=== PATIENT | male | born 1945 | race Caucasian/White ===

== ENCOUNTER → 2017-06-13 | Outpatient (CLI) | payer MEDICARE ==
[~2017-06-13] MED LIST: COUMADIN 22.5 MG/TAB PO; LOPRESSOR 225 MG/TAB PO; TYLENOL PM EXTR1 TA1 PO; ZOCOR 40MG40 MG PO
== END ==
LOC: COL.VAS 08:40
DX: I08.1 Rheumatic disorders of both mitral and tricuspid valves (principal); R06.02 Shortness of breath; R05 Cough; R53.81 Other malaise; R53.83 Other fatigue; R79.89 Other specified abnormal findings of blood chemistry

== ENCOUNTER → 2017-12-31 | Outpatient (REF) ==
[~2017-12-31] MED LIST changes: +ASPIRIN 81M81 MG/TA2 PO; +BREO IH; +CARDIZEM CD 18180 MG PO; +K-DUR 10 MEQ T10 MEQ PO; +LASIX 20MG TABL20 MG PO; +PEPCID 20MG TAB20 MG PO; +PLAVIX 75MG TAB75 MG PO; +PROAIR HFA0.09 MG/AC IH; +PROTONIX 40MG T40 MG PO; +VENTOLIN0.09 MG IH; +ZESTRIL 10MG10 MG PO
[2017-12-31 16:57] LABS: THYROID STIMULATING HORMONE 3.72 uIU/mL (0.465-4.680)
== END ==
LOC: ZLAB.WCH 16:05
PROVIDERS: Internal Medicine
DX: Z01.89 Encounter for other specified special examinations (principal)

== ENCOUNTER 2018-01-03 23:50 | Inpatient (IN) | payer MEDICARE, OTHER ==
[~2018-01-03] VITALS: Ht 188 cm; Wt 89.0 kg
[~2018-01-03 23:50] MED LIST changes: -ASPIRIN 81M81 MG/TA2 PO; -PLAVIX 75MG TAB75 MG PO; -PROAIR HFA0.09 MG/AC IH; -PROTONIX 40MG T40 MG PO; -VENTOLIN0.09 MG IH
[2018-01-03 23:51] VITALS: O2SAT 99
[2018-01-03 23:53] VITALS: O2SAT 100
[2018-01-03 23:54] VITALS: O2SAT 100
[2018-01-03 23:57] VITALS: O2SAT 98
[2018-01-03 23:58] VITALS: BP 122/97; PULSE 64; TEMP 98.7; O2SAT 100
[2018-01-04] VITALS (692 sets, daily range): BP systolic 117–168; BP diastolic 57–81; PULSE 43–52; TEMP 97.4–98.3; O2SAT 48–100
[2018-01-04] MEDS ORDERED: PLAVIX 75MG TAB75 MG PO (00:55)
[2018-01-04] MEDS ORDERED: ASPIRIN 81M81 MG/TA2 PO (00:56)
[2018-01-04] MEDS ORDERED: PROAIR HFA0.09 MG/AC IH (00:57)
[2018-01-04] MEDS ORDERED: VENTOLIN0.09 MG IH (00:58)
[2018-01-04 01:19] LABS: BASO % 0.4 % (0.0-2.0); EOS # 0.1 (0.0-0.7); GRAN # 3.8 (1.4-6.5); GRAN % 68.4 % (42.2-75.2); LYMPH % 16.9 % (20.0-51.0); MEAN CELL VOLUME 101 fl (80.0-100.0); MEAN CORPUSCULAR HGB CONC 30 g/dl (33.0-37.0); MEAN PLATELET VOLUME 11.3 fl (7.4-10.4); MONO # 0.7 (0.1-0.6); MONO % 11.8 % (1.7-9.3); PLATELET COUNT 192 K/mm3 (130-400); RED BLOOD COUNT 2.03 M/mm3 (4.20-5.60); REDCELL DISTRIBUTION WIDTH-CV 16.8 % (11.5-14.5)
[2018-01-04 01:22] LABS: MEAN CORPUSCULAR HEMOGLOBIN 31 pg (27.0-31.0)
[2018-01-04 01:23] LABS: HEMATOCRIT 20.5 % (42.0-52.0); HEMOGLOBIN 6.2 g/dl (13.5-18.0)
[2018-01-04 01:30] LABS: ALBUMIN 3.1 gm/dL (3.5-5.0); BILIRUBIN,TOTAL 0.4 mg/dL (0.0-1.0); CALCIUM 8.1 mg/dL (8.4-10.2); CREATININE, serum 1.01 mg/dL (0.66-1.25); MAGNESIUM 1.9 mg/dL (1.6-2.3); POTASSIUM 4.1 mmol/L (3.4-5.0); TOTAL PROTEIN 5.7 gm/dL (6.4-8.2)
[2018-01-04 01:43] LABS: TROPONIN-I 0.022 ng/mL (0.000-0.034)
[2018-01-04 06:16] LABS: BASO % 0.2 % (0.0-2.0); EOS # 0.1 (0.0-0.7); GRAN % 68.3 % (42.2-75.2); LYMPH % 16.8 % (20.0-51.0); MEAN CELL VOLUME 101 fl (80.0-100.0); MEAN CORPUSCULAR HGB CONC 31 g/dl (33.0-37.0); MEAN PLATELET VOLUME 10.7 fl (7.4-10.4); MONO # 0.7 (0.1-0.6); MONO % 12.4 % (1.7-9.3); PLATELET COUNT 182 K/mm3 (130-400); RED BLOOD COUNT 2.18 M/mm3 (4.20-5.60); REDCELL DISTRIBUTION WIDTH-CV 16.8 % (11.5-14.5)
[2018-01-04 06:21] LABS: HEMATOCRIT 21.9 % (42.0-52.0); HEMOGLOBIN 6.7 g/dl (13.5-18.0); MEAN CORPUSCULAR HEMOGLOBIN 31 pg (27.0-31.0)
[2018-01-04 06:29] LABS: BILIRUBIN,TOTAL 0.9 mg/dL (0.0-1.0); CREATININE, serum 1.03 mg/dL (0.66-1.25); POTASSIUM 4.4 mmol/L (3.4-5.0); TOTAL PROTEIN 5.7 gm/dL (6.4-8.2)
[2018-01-04 13:41] LABS: HEMATOCRIT 28.1 % (42.0-52.0); HEMOGLOBIN 8.9 g/dl (13.5-18.0)
[2018-01-04 20:37] LABS: HEMATOCRIT 27.1 % (42.0-52.0); HEMOGLOBIN 8.5 g/dl (13.5-18.0)
[2018-01-05] VITALS (171 sets, daily range): BP systolic 119–161; BP diastolic 60–75; PULSE 46–60; TEMP 97.3–98.4; O2SAT 82–100
[2018-01-05 05:24] LABS: BASO % 0.2 % (0.0-2.0); EOS # 0.2 (0.0-0.7); GRAN # 3.4 (1.4-6.5); GRAN % 67.8 % (42.2-75.2); LYMPH # 0.9 (1.2-3.4); LYMPH % 17.6 % (20.0-51.0); MEAN CELL VOLUME 98 fl (80.0-100.0); MEAN CORPUSCULAR HGB CONC 31 g/dl (33.0-37.0); MONO # 0.6 (0.1-0.6); MONO % 11.2 % (1.7-9.3); PLATELET COUNT 175 K/mm3 (130-400); RED BLOOD COUNT 2.54 M/mm3 (4.20-5.60); REDCELL DISTRIBUTION WIDTH-CV 17.4 % (11.5-14.5)
[2018-01-05 05:25] LABS: HEMATOCRIT 24.8 % (42.0-52.0); HEMOGLOBIN 7.7 g/dl (13.5-18.0); MEAN CORPUSCULAR HEMOGLOBIN 30 pg (27.0-31.0)
[2018-01-05 05:33] LABS: CALCIUM 7.7 mg/dL (8.4-10.2); CREATININE, serum 0.79 mg/dL (0.66-1.25); POTASSIUM 3.8 mmol/L (3.4-5.0)
[2018-01-05 11:26] LABS: HEMATOCRIT 26.8 % (42.0-52.0); HEMOGLOBIN 8.4 g/dl (13.5-18.0)
[2018-01-06 04:38] VITALS: BP 150/70; PULSE 51; TEMP 98
[2018-01-06 06:49] LABS: BASO % 0.2 % (0.0-2.0); EOS # 0.2 (0.0-0.7); EOS % 3.2 % (0-4.0); GRAN # 3.3 (1.4-6.5); LYMPH # 0.9 (1.2-3.4); LYMPH % 17.9 % (20.0-51.0); MEAN CELL VOLUME 99 fl (80.0-100.0); MEAN CORPUSCULAR HGB CONC 31 g/dl (33.0-37.0); MEAN PLATELET VOLUME 11.5 fl (7.4-10.4); MONO # 0.7 (0.1-0.6); MONO % 13.5 % (1.7-9.3); PLATELET COUNT 185 K/mm3 (130-400); RED BLOOD COUNT 2.63 M/mm3 (4.20-5.60); REDCELL DISTRIBUTION WIDTH-CV 17.4 % (11.5-14.5)
[2018-01-06 07:01] LABS: HEMATOCRIT 25.9 % (42.0-52.0); HEMOGLOBIN 8.1 g/dl (13.5-18.0); MEAN CORPUSCULAR HEMOGLOBIN 31 pg (27.0-31.0)
[2018-01-06 07:06] LABS: CALCIUM 8.7 mg/dL (8.4-10.2); CREATININE, serum 0.92 mg/dL (0.66-1.25); POTASSIUM 3.7 mmol/L (3.4-5.0)
[2018-01-06 07:54] VITALS: BP 137/57; PULSE 50; TEMP 98
[2018-01-06 11:52] VITALS: BP 92/58; PULSE 53; TEMP 97.8
[2018-01-06 12:52] LABS: HEMATOCRIT 27.4 % (42.0-52.0); HEMOGLOBIN 8.6 g/dl (13.5-18.0)
[2018-01-06] MEDS ORDERED: PROTONIX 40MG T40 MG PO (13:03)
[2018-01-06 13:45] VITALS: BP 142/74
[2018-01-06] MEDS ORDERED: ASPIRIN 81M81 MG/TA2 PO (14:45)
== END 2018-01-06 14:00 | disposition home or self-care (01) | DRG 378 ==
LOC: ICU 23:50 → SURG 01-05 12:50
PROVIDERS: Hospitalist; Internal Medicine Gastroenterology; Nurse Practitioner Family; Physician Assistant
PROC: 0DJ08ZZ Inspection of Upper Intestinal Tract, Via Natural or Artificial Opening Endoscopic (ICD-10-PCS; principal; 2018-01-04 14:45)
PROC: 0DJD8ZZ Inspection of Lower Intestinal Tract, Via Natural or Artificial Opening Endoscopic (ICD-10-PCS; 2018-01-04 14:45)
DX: K92.1 Melena (principal); D62 Acute posthemorrhagic anemia; K22.2 Esophageal obstruction; K44.9 Diaphragmatic hernia without obstruction or gangrene; K21.0 Gastro-esophageal reflux disease with esophagitis; K57.30 Diverticulosis of large intestine without perforation or abscess without bleeding; I48.2 Chronic atrial fibrillation; I10 Essential (primary) hypertension; J44.9 Chronic obstructive pulmonary disease, unspecified; Z95.2 Presence of prosthetic heart valve; Z79.01 Long term (current) use of anticoagulants; Z87.891 Personal history of nicotine dependence
CPT/HCPCS: 99223-AI; 99233-AI; 99239; C9113; J7030; P9016

== ENCOUNTER → 2018-01-04 | Outpatient (REF) ==
[~2018-01-04] MED LIST changes: +ASPIRIN 81M81 MG/TA2 PO; +PLAVIX 75MG TAB75 MG PO; +PROAIR HFA0.09 MG/AC IH; +PROTONIX 40MG T40 MG PO; +VENTOLIN0.09 MG IH
== END ==
LOC: COL.CARD 11:02
DX: Z01.818 Encounter for other preprocedural examination (principal)
CPT/HCPCS: J2704; J3010

== ENCOUNTER → 2018-01-04 | Outpatient (REF) | LOC: ZLAB.WCH 08:34 | DX: Z01.89 Encounter for other specified special examinations (principal) ==

== ENCOUNTER → 2018-01-14 | Outpatient (REF) ==
[2018-01-14 16:14] LABS: IRON,SERUM 23 ug/dL (35-150)
[2018-01-14 16:23] LABS: TOTAL IRON BINDING CAPACITY 342 ug/dL (261-462)
[2018-01-14 16:51] LABS: FERRITIN 16 ng/mL (18-464)
== END ==
LOC: ZLAB.WCH 15:35
PROVIDERS: Internal Medicine
DX: Z01.89 Encounter for other specified special examinations (principal)

== ENCOUNTER → 2018-02-04 | Outpatient (REF) ==
[2018-02-04 18:44] LABS: IRON,SERUM 33 ug/dL (35-150)
[2018-02-04 18:53] LABS: TOTAL IRON BINDING CAPACITY 346 ug/dL (261-462)
[2018-02-04 19:21] LABS: FERRITIN 15 ng/mL (18-464)
== END ==
LOC: ZLAB.WCH 18:20
PROVIDERS: Internal Medicine
DX: Z01.89 Encounter for other specified special examinations (principal)

== ENCOUNTER → 2018-03-04 | Outpatient (REF) ==
[2018-03-04 16:33] LABS: IRON,SERUM 28 ug/dL (35-150)
[2018-03-04 16:42] LABS: TOTAL IRON BINDING CAPACITY 353 ug/dL (261-462)
[2018-03-04 17:09] LABS: FERRITIN 16 ng/mL (18-464)
== END ==
LOC: ZLAB.WCH 16:01
PROVIDERS: Internal Medicine
DX: Z01.89 Encounter for other specified special examinations (principal)

== ENCOUNTER → 2018-04-10 | Outpatient (REF) ==
[2018-04-10 16:19] LABS: IRON,SERUM 57 ug/dL (35-150)
[2018-04-10 16:28] LABS: TOTAL IRON BINDING CAPACITY 311 ug/dL (261-462)
[2018-04-10 16:55] LABS: FERRITIN 72 ng/mL (18-464)
== END ==
LOC: ZLAB.WCH 16:11
PROVIDERS: Internal Medicine
DX: Z01.89 Encounter for other specified special examinations (principal)

== ENCOUNTER 2019-05-28 10:20 | Day surgery (SDC) | payer MEDICARE, OTHER ==
[~2019-05-28] VITALS: Ht 188.1 cm; Wt 83.0 kg
[2019-05-28] VITALS (10 sets, daily range): BP systolic 139–166; BP diastolic 68–98; PULSE 53–61; TEMP 97
[2019-05-28 11:10] LABS: HEMOGLOBIN 12.4 g/dl (13.5-18.0); MEAN CELL VOLUME 98 fl (80.0-100.0); MEAN CORPUSCULAR HEMOGLOBIN 31 pg (27.0-31.0); MEAN CORPUSCULAR HGB CONC 32 g/dl (33.0-37.0); MEAN PLATELET VOLUME 11.5 fl (7.4-10.4); PLATELET COUNT 167 K/mm3 (130-400); RED BLOOD COUNT 3.99 M/mm3 (4.20-5.60); REDCELL DISTRIBUTION WIDTH-CV 12.9 % (11.5-14.5)
[2019-05-28] MEDS ORDERED: BREO ELLIPTA 21 EACH IH (11:11)
[2019-05-28] MEDS ORDERED: PROTONIX 40MG T40 MG PO (11:12)
[2019-05-28] MEDS ORDERED: LIPITOR 80MG80 MG PO (11:13)
[2019-05-28] MEDS ORDERED: ASPIRIN E.C. 8181 MG PO (11:14)
[2019-05-28 11:19] LABS: CALCIUM 9.8 mg/dL (8.4-10.2); CREATININE, serum 1.11 (0.66-1.25); POTASSIUM 4.6 mmol/L (3.4-5.0)
[2019-05-28] MEDS ORDERED: CARTIA XT180 MG PO (11:57)
[2019-05-28] MEDS ORDERED: LEXAPRO 5MG5 MG OP (12:00)
[2019-05-28] MEDS ORDERED: PRINIVIL2.5 MG PO (12:01)
--- NOTE | 2019-05-28 12:20 | NUR ---
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
--- NOTE | 2019-05-28 12:34 | NUR ---
SEE MERGE FOR MEDICATION TIMES AND INTRA AND POST SEDATION ASSESSMENTS.
--- NOTE | 2019-05-28 15:31 | NUR ---
BEDSIDE HAND OFF REPORT GIVEN TO SABINO DIAZ. DRESSING C/D/I. HEMOSTASIS NOTED. PT ALERT AND ORIENTED. AT BEDSIDE
--- NOTE | 2019-05-28 16:17 | NUR ---
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 He is awake and A/Ox4. States he is having 6/10 pain to his left upper chest from incision site, pt was given PRN tylenol for this. Dressing to left upper chest is CDI, gauze and tape are free of complications. Ice pack applied. Saline lock to left AC is free of complications. Pt was oriented to room and to staff, expressed understanding. at bedside. Pt to remain on bedrest for 2 hours.
--- NOTE | 2019-05-28 17:43 | NUR ---
Pt doing well post op. He continues to state his left upper chest continues to be slighly sore, ice pack applied. Pt up to restroom without difficulty, steady gait. at bedside. Denies any other needs.
--- NOTE | 2019-05-28 20:55 | NUR ---
Patient report received from Jeanna RN at bedside during shift change. Upon assessment patient reports some aching pain at 5/10 to the incision site. PRN Tylenol given. Dressing CDI to site. Vitals stable. No other needs observed/reported.
[2019-05-29 03:33] VITALS: BP 124/81; PULSE 70
[2019-05-29 06:46] LABS: BASO % 0.2 % (0.0-2.0); EOS # 0.2 (0.0-0.7); EOS % 3.1 % (0-4.0); GRAN # 5.1 (1.4-6.5); GRAN % 77.9 % (42.2-75.2); HEMOGLOBIN 11.2 g/dl (13.5-18.0); LYMPH # 0.6 (1.2-3.4); LYMPH % 8.5 % (20.0-51.0); MEAN CELL VOLUME 97 fl (80.0-100.0); MEAN CORPUSCULAR HEMOGLOBIN 31 pg (27.0-31.0); MEAN CORPUSCULAR HGB CONC 32 g/dl (33.0-37.0); MEAN PLATELET VOLUME 11.8 fl (7.4-10.4); MONO # 0.7 (0.1-0.6); PLATELET COUNT 154 K/mm3 (130-400); RED BLOOD COUNT 3.62 M/mm3 (4.20-5.60); REDCELL DISTRIBUTION WIDTH-CV 12.8 % (11.5-14.5)
[2019-05-29 07:00] LABS: ALBUMIN 3.8 gm/dL (3.5-5.0); BILIRUBIN,TOTAL 0.7 mg/dL (0.0-1.0); CREATININE, serum 1.13 (0.66-1.25); POTASSIUM 4.6 mmol/L (3.4-5.0); TOTAL PROTEIN 6.6 gm/dL (6.4-8.2)
--- NOTE | 2019-05-29 07:14 | NUR ---
Patient report given to SABINO Poole. Patient awake, denies significant pain, ready for breakfast. No other needs reported/observed.
[2019-05-29 08:25] VITALS: BP 126/65; PULSE 60; TEMP 97.3
--- NOTE | 2019-05-29 08:45 | NUR ---
Follow-up visit; Patient states he is doing well and thanked Watch Inspector for checking up on him and offering God's blessings.
--- NOTE | 2019-05-29 09:00 | NUR ---
Assessment complete. Pt sitting up in chair, A&O x 4. Breath sounds CTAB. BS active x 4. Pt reports pain to left chest incision site 5 out of 10. Saline lock IV to left AC without s/s of complications. Sling in place to left upper ext. POC reviewed with pt. No further needs reported. Call light in reach.
[2019-05-29] MEDS ORDERED: CLEOCIN HCL300 MG PO (11:17)
[2019-05-29] MEDS ORDERED: COREG 3.123.125 MG/T PO (11:18)
--- NOTE | 2019-05-29 12:00 | NUR ---
Discharge instructions reviewed with pt regarding wound care, s/s of infection, medications and follow-up appointment. Pt verbalizes understanding, discharged home, ambulates out of facility accompanied by RN and pt's family.
--- NOTE | 2019-05-29 13:52 | NUR ---
Front Desk Officer met with patient to discuss discharge plan. Patient lives in [place] with his , Soraya (ph#[phone]). Patient sees Dr. Foster for primary care and obtains medications from [facility] with no issues. Patient does not use any DME and is independent with [facility]. Patient states he has Advance Directives completed. Patient plans to return home upon discharge.
== END 2019-05-29 12:00 | disposition home or self-care (01) ==
LOC: COL.CAR 10:20 → MEDICAL 15:41 → COL.CAR 05-29 12:00
PROVIDERS: Internal Medicine Cardiovascular Disease
DX: I49.5 Sick sinus syndrome (principal); I48.0 Paroxysmal atrial fibrillation
CPT/HCPCS: OP; J2250; J3010; J3370; J7030; J7050; Q9967

== ENCOUNTER → 2020-01-06 | Outpatient (CLI) | payer MEDICARE, OTHER ==
[~2020-01-06] VITALS: Ht 188.1 cm; Wt 85.3 kg
[~2020-01-06] MED LIST changes: +ASPIRIN E.C. 8181 MG PO; +BREO ELLIPTA 21 EACH IH; +CARTIA XT180 MG PO; +CLEOCIN HCL300 MG PO; +COREG 3.123.125 MG/T PO; +COREG 6.256.25 MG/TA PO; +LEXAPRO 5MG5 MG OP; +LIPITOR 80MG80 MG PO; +PRINIVIL2.5 MG PO; +TRELEGY ELLIPT1 EACH IH
[2020-01-06 09:19] VITALS: BP 111/74; PULSE 80
--- NOTE | 2020-01-06 10:27 | NUR ---
procedure cancelled by dr beasley
== END ==
LOC: COL.RAD 08:58
DX: R91.8 Other nonspecific abnormal finding of lung field (principal)

== ENCOUNTER 2020-02-16 09:02 | Day surgery (SDC) | payer MEDICARE, OTHER ==
[2020-02-16] VITALS (7 sets, daily range): BP systolic 118–129; BP diastolic 76–81; PULSE 70–80; TEMP 98–98.1
[2020-02-16 10:05] LABS: HEMOGLOBIN 10.7 g/dl (13.5-18.0); MEAN CELL VOLUME 98 fl (80.0-100.0); MEAN CORPUSCULAR HEMOGLOBIN 31 pg (27.0-31.0); MEAN CORPUSCULAR HGB CONC 32 g/dl (33.0-37.0); PLATELET COUNT 160 K/mm3 (130-400); RED BLOOD COUNT 3.42 M/mm3 (4.20-5.60); REDCELL DISTRIBUTION WIDTH-CV 12.8 % (11.5-14.5)
[2020-02-16 10:06] LABS: HEMATOCRIT 33.5 % (42.0-52.0)
[2020-02-16 10:14] LABS: CALCIUM 9.2 mg/dL (8.4-10.2); CREATININE, serum 1.57 (0.66-1.25); MAGNESIUM 1.8 mg/dL (1.6-2.3); POTASSIUM 4.7 mmol/L (3.4-5.0)
[2020-02-16 10:23] LABS: INR 1.1 (0.8-3.0)
[2020-02-16] MEDS ORDERED: BETAPACE 80MG80 MG PO (10:42)
[2020-02-16 10:44] LABS: THYROID STIMULATING HORMONE 3.33 uIU/mL (0.465-4.680)
--- NOTE | 2020-02-16 12:15 | NUR ---
INT discontinued intact. Discharge orders given. Transferred to private car by
== END 2020-02-16 12:15 | disposition home or self-care (01) ==
LOC: COL.CAR
PROVIDERS: Internal Medicine Cardiovascular Disease
DX: I48.91 Unspecified atrial fibrillation (principal); Z20.828 Contact with and (suspected) exposure to other viral communicable diseases; I08.1 Rheumatic disorders of both mitral and tricuspid valves; E78.5 Hyperlipidemia, unspecified; I25.10 Atherosclerotic heart disease of native coronary artery without angina pectoris; I10 Essential (primary) hypertension; J43.9 Emphysema, unspecified; D64.9 Anemia, unspecified; F41.9 Anxiety disorder, unspecified; K21.9 Gastro-esophageal reflux disease without esophagitis; Z87.891 Personal history of nicotine dependence; Z95.0 Presence of cardiac pacemaker; Z88.0 Allergy status to penicillin; Z95.5 Presence of coronary angioplasty implant and graft; Z79.82 Long term (current) use of aspirin; Z79.899 Other long term (current) drug therapy
CPT/HCPCS: J2704

== ENCOUNTER 2021-04-27 09:03 | Outpatient (CLI) | payer MEDICARE, OTHER ==
[~2021-04-27] VITALS: Ht 188.1 cm; Wt 90.9 kg
[~2021-04-27 09:03] MED LIST changes: +BETAPACE 80MG80 MG PO
[2021-04-27 09:41] LABS: HEMOGLOBIN 10.5 g/dl (13.5-18.0); MEAN CELL VOLUME 93 fl (80.0-100.0); MEAN CORPUSCULAR HEMOGLOBIN 28 pg (27.0-31.0); MEAN CORPUSCULAR HGB CONC 31 g/dl (33.0-37.0); MEAN PLATELET VOLUME 11.3 fl (7.4-10.4); PLATELET COUNT 206 K/mm3 (130-400); RED BLOOD COUNT 3.71 M/mm3 (4.20-5.60); REDCELL DISTRIBUTION WIDTH-CV 14.8 % (11.5-14.5)
[2021-04-27 09:42] LABS: HEMATOCRIT 34.4 % (42.0-52.0)
[2021-04-27 09:48] LABS: INR 1.1 (0.8-3.0)
[2021-04-27 09:55] LABS: CALCIUM 9.6 mg/dL (8.4-10.2); CREATININE, serum 1.36 mg/dL (0.72-1.25); POTASSIUM 4.3 mmol/L (3.5-4.5)
[2021-04-27] MEDS ORDERED: BETAPACE 120MG120 MG PO (09:58)
[2021-04-27] MEDS ORDERED: LEXAPRO20 MG PO (09:59)
[2021-04-27] MEDS ORDERED: THEO-24 30300 MG/CAP PO (10:00)
[2021-04-27 10:04] VITALS: BP 147/87; PULSE 71; TEMP 97.9
--- NOTE | 2021-04-27 10:50 | NUR ---
Report to Norman Hollins.
--- NOTE | 2021-04-27 11:15 | NUR ---
BS REPORT FROM NAHOMY GALLO. PT RESTING COMFORTABLY AFTER NICOLASA, NO PROBLEMS SWALLOWING SECRETIONS. WATER PROVIDED. AT BS. CALL LIGHT IN REACH. PACED RHYTHM ON MONITOR, REG AND UNLABORED RESPIRATION. WE TALKED ABOUT DISCHARGE PLAN IN ABOUT 1 HOUR.
[2021-04-27 11:19] VITALS: BP 128/81; PULSE 70
[2021-04-27 11:30] VITALS: BP 125/79; PULSE 70
[2021-04-27 11:45] VITALS: PULSE 70
[2021-04-27 12:00] VITALS: BP 155/91; PULSE 70
[2021-04-27 12:15] VITALS: BP 150/91; PULSE 71
--- NOTE | 2021-04-27 12:20 | NUR ---
Pt recovered from NICOLASA with no problem. he has been able to drink water wtih no problem, has been ambulatory with steady gait. I reviewed dc/fu instructions with pt and his , both of whom verbalize understanding. IV is dc'd and pt is escorted to exit via wheelchair.
== END 2021-04-27 12:30 | disposition home or self-care (01) ==
LOC: COL.RAD 09:03
PROVIDERS: Internal Medicine Cardiovascular Disease
DX: I23.6 Thrombosis of atrium, auricular appendage, and ventricle as current complications following acute myocardial infarction (principal); Z20.822 Contact with and (suspected) exposure to COVID-19
CPT/HCPCS: J2704

== ENCOUNTER 2021-06-06 10:56 | Emergency (ER) | payer MEDICARE, OTHER ==
[~2021-06-06] VITALS: Ht 188 cm; Wt 88.6 kg
[~2021-06-06 10:56] MED LIST changes: +BETAPACE 120MG120 MG PO; +LEXAPRO 10MG10 MG PO; +THEO-24 30300 MG/CAP PO
[2021-06-06 11:02] VITALS: TEMP 97.8
[2021-06-06 11:29] LABS: BASO % 0.2 % (0.0-2.0); EOS # 0.1 K/mm3 (0.0-0.7); EOS % 1.7 % (0.0-4.0); GRAN # 6.6 K/mm3 (1.4-6.5); GRAN % 78.4 % (42.2-75.2); HEMATOCRIT 38.6 % (42.0-52.0); LYMPH # 0.7 K/mm3 (1.2-3.4); LYMPH % 7.8 % (20.0-51.0); MEAN CELL VOLUME 90 fl (80.0-100.0); MEAN CORPUSCULAR HEMOGLOBIN 28 pg (27-31); MEAN CORPUSCULAR HGB CONC 31 g/dl (33.0-37.0); MONO # 0.9 K/mm3 (0.1-0.6); MONO % 10.7 % (1.7-9.3); PLATELET COUNT 226 K/mm3 (130-400); RED BLOOD COUNT 4.27 M/mm3 (4.20-5.60); REDCELL DISTRIBUTION WIDTH-CV 14.2 % (11.5-14.5)
[2021-06-06] MEDS ORDERED: OMNICEF 300MG300 MG PO (11:34)
[2021-06-06 11:45] LABS: ALBUMIN 4.1 gm/dL (3.4-4.8); BILIRUBIN,TOTAL 1.3 mg/dL (0.2-1.2); C-REACTIVE PROTEIN 0.42 mg/dL (0.00-0.50); CALCIUM 9.8 mg/dL (8.4-10.2); CREATININE, serum 1.6 mg/dL (0.72-1.25); POTASSIUM 4.3 mmol/L (3.5-4.5); TOTAL PROTEIN 7.7 gm/dL (6.2-8.1)
[2021-06-06 11:52] LABS: COLLECTION METHOD CLEAN CATCH
[2021-06-06 12:06] LABS: MUCOUS Present (NOT PRESENT); PH 6 (5-8); SQUAMOUS EPITHELIAL 0-2 /hpf (0-10); URINE APPEARANCE Hazy (CLEAR/HAZY); URINE BACTERIA Rare (NONE SEEN); URINE BILIRUBIN Negative (NEGATIVE); URINE BLOOD Negative (NEGATIVE); URINE COLOR Yellow (YELLOW); URINE GLUCOSE Negative (NEGATIVE); URINE KETONE Negative (NEGATIVE); URINE LEUKOCYTE ESTERASE Negative (NEGATIVE); URINE NITRATE Negative (NEGATIVE); URINE PROTEIN(semi-quant) Negative (NEGATIVE); URINE RBC 0-2 /hpf (0-2); URINE UROBILINOGEN Negative (NEGATIVE)
[2021-06-06] MEDS ORDERED: PRILOSEC 20MG20 MG PO (13:05)
[2021-06-06 13:57] VITALS: BP 128/87; PULSE 80
== END 2021-06-06 14:03 | disposition home or self-care (01) ==
LOC: COL.ER 10:56
PROVIDERS: Family Medicine
DX: K92.2 Gastrointestinal hemorrhage, unspecified (principal); I48.91 Unspecified atrial fibrillation; Z87.442 Personal history of urinary calculi; Z79.899 Other long term (current) drug therapy
CPT/HCPCS: C9113; J2405; J7030; J7120

== ENCOUNTER 2021-06-22 09:09 | Day surgery (SDC) | payer MEDICARE, OTHER ==
[~2021-06-22] VITALS: Ht 188 cm; Wt 90.4 kg
[2021-06-22] VITALS (9 sets, daily range): BP systolic 113–153; BP diastolic 70–98; PULSE 69–116; TEMP 98
[~2021-06-22 09:09] MED LIST changes: +OMNICEF 300MG300 MG PO; +PRILOSEC 20MG20 MG PO
[2021-06-22] MEDS ORDERED: LIPITOR 80MG80 MG PO (10:09)
[2021-06-22 10:59] LABS: MEAN CELL VOLUME 91 fl (80.0-100.0); MEAN CORPUSCULAR HGB CONC 31 g/dl (33.0-37.0); PLATELET COUNT 211 K/mm3 (130-400); REDCELL DISTRIBUTION WIDTH-CV 14.8 % (11.5-14.5)
[2021-06-22 11:00] LABS: HEMATOCRIT 31.9 % (42.0-52.0); HEMOGLOBIN 9.9 g/dl (13.5-18.0); MEAN CORPUSCULAR HEMOGLOBIN 28 pg (27-31)
[2021-06-22 11:08] LABS: INR 1.1 (0.8-3.0); PROTHROMBIN TIME 12.4 SECONDS (9.7-12.8)
[2021-06-22 11:10] LABS: PARTIAL THROMBOPLASTIN TIME 28.5 SECONDS (26.0-37.0)
[2021-06-22 11:17] LABS: CALCIUM 9.2 mg/dL (8.4-10.2); CREATININE, serum 1.25 mg/dL (0.72-1.25); MAGNESIUM 1.9 mg/dL (1.6-2.6); POTASSIUM 4.5 mmol/L (3.5-4.5)
[2021-06-22 11:38] LABS: THYROID STIMULATING HORMONE 1.762 uIU/mL (0.350-4.940)
[2021-06-22] MEDS ORDERED: THEO-24100 MG PO (14:12)
[2021-06-22] MEDS ORDERED: ZEBETA 5MG5 MG PO (14:14)
[2021-06-22] MEDS ORDERED: PACERONE400 MG PO (14:14)
--- NOTE | 2021-06-22 14:37 | NUR ---
Pt is ready for discarge. He did well during his recovery, drinking water with no problem. repeat EKG was obtained, pt's rate and rhythm have remained regular throughout. Pt reports feels better than when he came in this am. DC/rx and fu instructions were reviewed wt pt. Pt was steady on his feet, and IV was dc'd with cath intact. to exit via wheelchair.
--- NOTE | 2021-06-22 14:45 | NUR ---
DC instrucions reviewed with pt and , both express understanding. Pt states throat feels mildly irritated, but he has been able to swallow liquids with no issue. He has refused food, stating he is not hungry at this time. He is steady on feet in room. INT DC'd with catheter intact. He is assisted out by wheelchair to 's car.
== END 2021-06-22 14:45 | disposition home or self-care (01) ==
LOC: COL.CAR 09:09
PROVIDERS: Internal Medicine Cardiovascular Disease
DX: I48.0 Paroxysmal atrial fibrillation (principal); I10 Essential (primary) hypertension; E78.5 Hyperlipidemia, unspecified; J44.9 Chronic obstructive pulmonary disease, unspecified; K21.9 Gastro-esophageal reflux disease without esophagitis; I35.0 Nonrheumatic aortic (valve) stenosis; I25.10 Atherosclerotic heart disease of native coronary artery without angina pectoris; I95.9 Hypotension, unspecified; F32.A Depression, unspecified; F41.9 Anxiety disorder, unspecified; Z79.82 Long term (current) use of aspirin; Z79.899 Other long term (current) drug therapy; Z87.891 Personal history of nicotine dependence
CPT/HCPCS: J2704; J7030

== ENCOUNTER 2022-01-18 07:53 | Day surgery (SDC) | payer MEDICARE, OTHER ==
[~2022-01-18] VITALS: Ht 188.1 cm; Wt 94.0 kg
[~2022-01-18 07:53] MED LIST changes: +PACERONE400 MG PO; +THEO-24100 MG PO; +ZEBETA 5MG5 MG PO
[2022-01-18] MEDS ORDERED: TRELEGY ELLIPT1 EACH IH (09:00)
[2022-01-18] MEDS ORDERED: PACERONE400 MG PO (09:00)
[2022-01-18 09:03] LABS: BASO % 0.2 % (0.0-2.0); EOS # 0.1 K/mm3 (0.0-0.7); EOS % 2.6 % (0.0-4.0); GRAN # 3.6 K/mm3 (1.4-6.5); GRAN % 73.2 % (42.2-75.2); HEMOGLOBIN 10.5 g/dl (13.5-18.0); LYMPH # 0.6 K/mm3 (1.2-3.4); LYMPH % 11.4 % (20.0-51.0); MEAN CELL VOLUME 97 fl (80.0-100.0); MEAN CORPUSCULAR HEMOGLOBIN 31 pg (27-31); MEAN CORPUSCULAR HGB CONC 32 g/dl (33.0-37.0); MEAN PLATELET VOLUME 11.2 fl (7.4-10.4); MONO # 0.6 K/mm3 (0.1-0.6); MONO % 12.2 % (1.7-9.3); PLATELET COUNT 153 K/mm3 (130-400); RED BLOOD COUNT 3.37 M/mm3 (4.20-5.60)
[2022-01-18] MEDS ORDERED: NATURAL IRON65 MG (09:03)
[2022-01-18] MEDS ORDERED: AMBIEN 10MG10 MG PO (09:04)
[2022-01-18] MEDS ORDERED: B-121000 MCG PO (09:04)
[2022-01-18] MEDS ORDERED: PROAIR HFA0.09 MG/AC IH (09:05)
[2022-01-18 09:08] LABS: HEMATOCRIT 32.6 % (42.0-52.0)
[2022-01-18 09:11] VITALS: BP 154/98; PULSE 80; TEMP 97
[2022-01-18 09:18] LABS: INR 1.1 (0.8-3.0); PARTIAL THROMBOPLASTIN TIME 30.5 SECONDS (26.0-37.0); PROTHROMBIN TIME 12.1 SECONDS (9.7-12.8)
[2022-01-18 09:23] LABS: CREATININE, serum 1.34 mg/dL (0.72-1.25); MAGNESIUM 1.7 mg/dL (1.6-2.6); POTASSIUM 4.2 mmol/L (3.5-4.5)
[2022-01-18 09:44] LABS: THYROID STIMULATING HORMONE 7.807 uIU/mL (0.350-4.940)
[2022-01-18 10:10] VITALS: BP 135/79; PULSE 71
--- NOTE | 2022-01-18 10:10 | NUR ---
report from Lena GALLO, pt is awake and alert, hob elevated, call light in reach, and in room, called for EKG
[2022-01-18 10:25] VITALS: BP 144/77; PULSE 72
[2022-01-18 10:40] VITALS: BP 146/80; PULSE 70
--- NOTE | 2022-01-18 10:40 | NUR ---
pt sits on side of bed, iv d'cd intact, pt dressed, no c/o
[2022-01-18 11:00] VITALS: BP 152/90; PULSE 70
--- NOTE | 2022-01-18 11:00 | NUR ---
reviewed discharge inst. with pt and on procedure, moderate sedation precautions and followup, no new med changes. pt up and dressed, discharged via w/c to car at 1120
== END 2022-01-18 11:20 | disposition home or self-care (01) ==
LOC: COL.CAR 07:53
PROVIDERS: Internal Medicine Cardiovascular Disease
DX: I48.0 Paroxysmal atrial fibrillation (principal); Z87.891 Personal history of nicotine dependence; I25.10 Atherosclerotic heart disease of native coronary artery without angina pectoris; E78.2 Mixed hyperlipidemia; I08.1 Rheumatic disorders of both mitral and tricuspid valves; I27.20 Pulmonary hypertension, unspecified; Z79.01 Long term (current) use of anticoagulants
CPT/HCPCS: J2704; J7120